=== PATIENT | male | born 1960 | race Caucasian/White ===

== ENCOUNTER → 2021-05-03 | Outpatient (CLI) | payer OTHER | LOC: RAD 09:28 | DX: I09.9 Rheumatic heart disease, unspecified (principal); E66.9 Obesity, unspecified; M54.5 Low back pain; M51.36 Other intervertebral disc degeneration, lumbar region; M17.0 Bilateral primary osteoarthritis of knee; M25.78 Osteophyte, vertebrae; M48.061 Spinal stenosis, lumbar region without neurogenic claudication | CPT/HCPCS: 72110; 73564 ==

== ENCOUNTER 2021-09-23 00:44 | Inpatient (IN) | payer OTHER ==
[~2021-09-23] VITALS: Ht 172.7 cm; Wt 141.5 kg
[2021-09-23 01:22] LABS: HEMOGLOBIN 16.4 gm/dl (14.0-17.5); RED BLOOD COUNT 5.54 M/UL (4.20-5.50); WHITE BLOOD COUNT 14.2 K/UL (4.5-11.0)
[2021-09-23 01:42] LABS: BUN/CREATININE RATIO 22 (0-10)
[2021-09-23] MEDS ORDERED: TOPROL XL50 MG PO (08:32)
[2021-09-23] MEDS ORDERED: POTASSIUM CHLO10 MEQ PO (08:32)
[2021-09-23] MEDS ORDERED: LASIX20 MG PO (08:34)
[2021-09-23] MEDS ORDERED: ALTACE5 MG PO (08:34)
[2021-09-23] MEDS ORDERED: PROTONIX 40 MG40 M1 PO (08:35)
[2021-09-23] MEDS ORDERED: ASPIRIN EC81 MG PO (08:35)
[2021-09-24 05:50] LABS: HEMOGLOBIN 15.5 gm/dl (14.0-17.5); RED BLOOD COUNT 5.26 M/UL (4.20-5.50); WHITE BLOOD COUNT 13.2 K/UL (4.5-11.0)
[2021-09-24 06:06] LABS: BUN/CREATININE RATIO 26 (0-10)
[2021-09-25 06:38] LABS: HEMOGLOBIN 15.1 gm/dl (14.0-17.5); RED BLOOD COUNT 5.38 M/UL (4.20-5.50); WHITE BLOOD COUNT 10.9 K/UL (4.5-11.0)
[2021-09-25 06:58] LABS: BUN/CREATININE RATIO 24 (0-10)
[2021-09-26 10:19] LABS: BUN/CREATININE RATIO 20 (0-10)
[2021-09-26] MEDS ORDERED: LIPITOR40 MG PO (14:44)
[2021-09-26] MEDS ORDERED: CLOPIDOGREL75 MG PO (14:44)
[2021-09-26] MEDS ORDERED: NITROGLYCERIN0.4 MG SL (14:44)
== END 2021-09-26 16:50 | disposition home or self-care (01) | DRG 64 ==
LOC: ER1 00:44 → CDU 03:03 → PROG CARE 03:03
PROVIDERS: Emergency Medicine; Internal Medicine; Internal Medicine Infectious Disease; ADMIT Internal Medicine
PROC: B24BZZ4 Ultrasonography of Heart with Aorta, Transesophageal (ICD-10-PCS; principal; 2021-09-23)
DX: I63.9 Cerebral infarction, unspecified (principal); I21.4 Non-ST elevation (NSTEMI) myocardial infarction; G81.91 Hemiplegia, unspecified affecting right dominant side; Z68.42 Body mass index [BMI] 45.0-49.9, adult; Z20.822 Contact with and (suspected) exposure to COVID-19; R47.81 Slurred speech; I45.10 Unspecified right bundle-branch block; I77.819 Aortic ectasia, unspecified site; M19.90 Unspecified osteoarthritis, unspecified site; K21.9 Gastro-esophageal reflux disease without esophagitis; I11.0 Hypertensive heart disease with heart failure; R29.700 NIHSS score 0; I50.9 Heart failure, unspecified; E07.9 Disorder of thyroid, unspecified; I08.1 Rheumatic disorders of both mitral and tricuspid valves; E66.01 Morbid (severe) obesity due to excess calories; E78.00 Pure hypercholesterolemia, unspecified; E78.5 Hyperlipidemia, unspecified; Z79.01 Long term (current) use of anticoagulants; Z79.82 Long term (current) use of aspirin; Z82.49 Family history of ischemic heart disease and other diseases of the circulatory system; I25.2 Old myocardial infarction
CPT/HCPCS: ECHO; 36415; 70450; 70496; 70498; 70551; 71045; 71046; 71275; 76536; 80048; 80053; 80061; 82550; 82553; 83605; 83690; 83735; 83874; 83880; 84100; 84439; 84443; 84484; 85025; 85610; 85730; 87040; 93005; 93306; 97116-GP-CQ; 97162; 97166; 97530; 97535; 99285; J1644; Q9967; U0002

== ENCOUNTER 2021-11-17 20:38 | Inpatient (IN) | payer OTHER ==
[~2021-11-17] VITALS: Ht 172.7 cm; Wt 136.1 kg
[~2021-11-17 20:38] MED LIST: ALTACE5 MG PO; ASPIRIN EC81 MG PO; CLOPIDOGREL75 MG PO; LASIX20 MG PO; LIPITOR40 MG PO; NITROGLYCERIN0.4 MG SL; POTASSIUM CHLO10 MEQ PO; PROTONIX 40 MG40 M1 PO; TOPROL XL50 MG PO
[2021-11-17 21:05] LABS: HEMOGLOBIN 15.3 gm/dl (14.0-17.5); RED BLOOD COUNT 5.57 M/UL (4.20-5.50); WHITE BLOOD COUNT 14.5 K/UL (4.5-11.0)
[2021-11-17 21:50] LABS: BUN/CREATININE RATIO 13 (0-10)
--- NOTE | 2021-11-18 13:06 | NUR ---
Notified Dr. Carrillo of critical troponin 0.85. No new orders at this time.
[2021-11-19 03:11] LABS: HEMOGLOBIN 14.6 gm/dl (14.0-17.5); RED BLOOD COUNT 5.33 M/UL (4.20-5.50); WHITE BLOOD COUNT 12.1 K/UL (4.5-11.0)
[2021-11-19 03:42] LABS: BUN/CREATININE RATIO 21 (0-10)
--- NOTE | 2021-11-19 08:32 | NUR ---
7218- CONTACTED DR OLIVA TO CLARIFY MEDICATIONS. ORDER TO HOLD ASPIRIN AND PLAVIX DUE TO HEART CATHERATION PROCEDURE.
--- NOTE | 2021-11-19 09:51 | NUR ---
0920- PATIENT LEFT FOR RN LACTATION AT THIS TIME IN STABLE CONDITION.
--- NOTE | 2021-11-19 12:34 | NUR ---
1212-NOTIFIED DR OLIVA OF HEART RATE IN THE 140S. BP 97/55. NEW ORDER TO TRANSFER TO PCU FOR AMIODARONE DRIP.
--- NOTE | 2021-11-19 12:40 | NUR ---
1212- CLARIFICATION FROM DR OLIVA ON HEPARIN DRIP. ORDER TO CHECK PTT WHEN HEAPRIN RESTARTED ONE HOUR AFTER TR BAND REMOVED.
== END 2021-11-19 16:17 | disposition short-term general hospital (02) | DRG 281 ==
LOC: ER1 20:38 → CDU 22:27 → MED SURG 4 22:27 → PROG CARE 11-19 13:25
PROVIDERS: Emergency Medicine; Internal Medicine; ADMIT Internal Medicine
PROC: 4A023N7 Measurement of Cardiac Sampling and Pressure, Left Heart, Percutaneous Approach (ICD-10-PCS; principal; 2021-11-19)
PROC: B2111ZZ Fluoroscopy of Multiple Coronary Arteries using Low Osmolar Contrast (ICD-10-PCS; 2021-11-19)
DX: I21.4 Non-ST elevation (NSTEMI) myocardial infarction (principal); I69.351 Hemiplegia and hemiparesis following cerebral infarction affecting right dominant side; K21.9 Gastro-esophageal reflux disease without esophagitis; E78.5 Hyperlipidemia, unspecified; Z20.822 Contact with and (suspected) exposure to COVID-19; I11.0 Hypertensive heart disease with heart failure; I50.9 Heart failure, unspecified; I20.0 Unstable angina; M19.91 Primary osteoarthritis, unspecified site; Z96.651 Presence of right artificial knee joint; Z82.49 Family history of ischemic heart disease and other diseases of the circulatory system; Z79.899 Other long term (current) drug therapy
CPT/HCPCS: 36415; 71045; 80048; 80053; 82550; 82553; 83874; 84484; 85025; 85347; 85610; 85730; 93005; 99152; 99153; 99285; C1769; C1887; C1894; J1644; J2250; J3010; J7040; Q9967; U0002